=== PATIENT | female | born 1970 | race Caucasian/White ===

== ENCOUNTER 2018-08-01 10:54 | Day surgery (SDC) | payer OTHER ==
[2018-07-31 09:38] VITALS: BMI 25.8
[2018-08-01] MEDS ORDERED: VASOPRESSIN 20 UNITS/ML VIAL IV ONE (12:50)
[2018-08-01] MEDS ORDERED: LIDOCAINE HCL/PF 2% SDV 5ML VIAL ONE (13:05)
[2018-08-01] MEDS ORDERED: PROPOFOL 20 ML ONE ×2 (13:05)
[2018-08-01] MEDS ORDERED: MIDAZOLAM HCL 2 MG/2 ML SINGLE DOSE VIAL ONE (13:09)
[2018-08-01] MEDS ORDERED: ceFAZolin SODIUM 1 GM VIAL IVPB ONE (13:20)
[2018-08-01] MEDS ORDERED: BUPIVACAINE HCL/PF 0.5% (5MG/ML) 10 ML VIAL ONE (13:44)
[2018-08-01] MEDS ORDERED: BUPIVACAINE HCL/PF 0.5% (5MG/ML) 10 ML VIAL IJ ONE (13:53)
[2018-08-01] MEDS ORDERED: oxyCODONE HCL 5 MG TABLET PO PRN (14:14)
[2018-08-01] MEDS ORDERED: ONDANSETRON 4 MG/2 ML VIAL IVPUSH PRN (14:14)
[2018-08-01] MEDS ORDERED: ACETAMINOPHEN 1000 MG/100 ML VIAL (NON FORMULARY) IVPB ONE (14:14)
[2018-08-01] MEDS ORDERED: PROMETHAZINE HCL 25 MG/1 ML VIAL IVPUSH PRN (14:14)
--- NOTE | 2018-08-01 14:41 | OP ---
DATE OF OPERATION: DATE OF DICTATION: 08/01/2018 PREOPERATIVE DIAGNOSES: Stress urinary incontinence, cystocele. POSTOPERATIVE DIAGNOSES: Stress urinary incontinence, cystocele. PROCEDURE PERFORMED: Suburethral sling urethropexy, anterior colporrhaphy. PRIMARY SURGEON: Elias Griggs MD PROCEDURE: After adequate anesthesia patient was prepped and draped in the dorsal lithotomy position. Evaluation under anesthesia revealed no pelvic masses. A vertical incision made over the anterior vaginal wall. Perivesical fascia dissected away, plicated anterior surface using 2-0 Vicryl suture in interrupted fashion. The midurethral area was dissected up to the space of Retzius. Transvaginal tape sling was inserted at the appropriate anatomical location. Cystoscopy was performed to note no foreign bodies in the bladder. Minimum tension was applied on the sling. Sling sleeves were removed and the sling arms were cut off at the skin. Skin closed using 2-0 plain and the anterior vaginal wall closed using 2-0 Vicryl suture in continuous fashion. Patient tolerated procedure well, transferred to recovery in stable condition. All instrument and sponge counts were given to us as correct. Gabe [id number]
[2018-08-01] MEDS ORDERED: ONDANSETRON 4 MG/2 ML VIAL ONE (14:58)
[2018-08-01] MEDS ORDERED: oxyCODONE HCL 5 MG TABLET ONE ×2 (14:58→16:33)
[2018-08-01] MEDS ORDERED: oxyCODONE HCL 5 MG TABLET PO ONE (16:35)
[2018-08-01 18:09] VITALS: BP 150/88; PULSE 70; TEMP 98.1
== END 2018-08-01 17:15 | disposition home or self-care (01) ==
LOC: JASU-SURG 10:54
PROVIDERS: ATTEND Obstetrics & Gynecology Female Pelvic Medicine and Reconstructive Surgery
PROC: 0JQC0ZZ Repair Pelvic Region Subcutaneous Tissue and Fascia, Open Approach (ICD-10-PCS; principal; 2018-08-01 12:30)
PROC: 0TSD0ZZ Reposition Urethra, Open Approach (ICD-10-PCS; 2018-08-01 12:30)
DX: N39.3 Stress incontinence (female) (male) (principal); N81.10 Cystocele, unspecified
CPT/HCPCS: 57240; 57288; C1771; 84703; 94760; J0131